=== PATIENT | female | born 1990 | race Caucasian/White ===

== ENCOUNTER 2020-11-12 15:46 | Emergency (ER) | payer OTHER ==
[~2020-11-12] VITALS: Ht 162.6 cm; Wt 68.2 kg
[2020-11-12] MEDS ORDERED: ONDANSETRON 4MG/2ML VIAL IV ONE (17:25)
[2020-11-12 18:16] LABS: BASO # 0.1 10^3/uL (0.0-0.2); BASO % 0.7 % (0.0-1.0); EOS # 0.1 10^3/uL (0.0-0.5); HEMOGLOBIN 13.3 g/dl (12.0-15.5); LYMPH # 4.3 10^3/uL (1.5-5.0); LYMPH % 40.9 % (24.0-44.0); MEAN CORPUSCULAR HEMOGLOBIN 29.7 pg (27.0-33.0); MEAN CORPUSCULAR HGB CONC 34.1 g/dl (32.0-36.5); MEAN CORPUSCULAR VOLUME 87.1 fl (80.0-96.0); MONO # 0.7 10^3/uL (0.0-0.8); MONO % 6.2 % (2.0-8.0); NEUTROPHILS # 5.3 10^3/uL (1.5-8.5); NEUTROPHILS % 50.6 % (36.0-66.0); PLATELET COUNT, AUTOMATED 272 10^3/uL (150-450); RED BLOOD COUNT 4.48 10^6/uL (4.00-5.40); WHITE BLOOD COUNT 10.5 10^3/uL (4.0-10.0)
[2020-11-12 18:23] LABS: ALBUMIN 4.1 GM/DL (3.2-5.2); ALT/SGPT 15 U/L (12-78); BILIRUBIN,DIRECT 0.1 MG/DL (0.0-0.2); BILIRUBIN,TOTAL 0.3 MG/DL (0.2-1.0); BLOOD UREA NITROGEN 13 MG/DL (7-18); CALCIUM LEVEL 8.8 MG/DL (8.5-10.1); CARBON DIOXIDE LEVEL 25 MEQ/L (21-32); CHLORIDE LEVEL 104 MEQ/L (98-107); CREATININE FOR GFR 0.66 MG/DL (0.55-1.30); GLOMERULAR FILTRATION RATE > 60.0 (>60); GLUCOSE, FASTING 123 MG/DL (70-100); LIPASE 94 U/L (73-393); POTASSIUM SERUM 2.9 MEQ/L (3.5-5.1); SODIUM LEVEL 138 MEQ/L (136-145); TOTAL PROTEIN 7.3 GM/DL (6.4-8.2)
[2020-11-12 18:25] LABS: HCG, SERUM QUALITATIVE NEGATIVE (NEGATIVE)
--- NOTE | 2020-11-12 18:58 | REP ---
INDICATION: profuse nausea vomiting. COMPARISON: None. TECHNIQUE: Single upright PA view of the chest, 2 supine AP views of the abdomen, single upright view of the abdomen. FINDINGS: PA chest: The lung breaux are clear. Cardiac size is normal. The diamond, mediastinum, and skeletal structures are unremarkable. There is no free subdiaphragmatic air. Supine and upright abdomen: Bowel gas pattern is normal. There are small calcifications in the pelvis on the right, nonspecific, phleboliths versus ureteral quadrant clinical correlation. The skeletal and soft tissue structures are otherwise unremarkable. IMPRESSION: Negative upright PA chest. Normal bowel gas pattern. Nonspecific pelvic calcifications on the right, phleboliths versus ureteral. <Electronically signed by Waldemar Stewart > 11/12/20 [id number]
[2020-11-12] MEDS ORDERED: POTASSIUM CHLORIDE 10 MEQ SR TABLET PO ONE (19:45)
[2020-11-12] MEDS ORDERED: ONDA4TAB6 PO (19:56)
[2020-11-12 20:11] VITALS: BP 119/73
== END 2020-11-12 20:13 | disposition home or self-care (01) ==
LOC: M ED 15:46
DX: R11.2 Nausea with vomiting, unspecified (principal); E87.6 Hypokalemia; Z88.1 Allergy status to other antibiotic agents
CPT/HCPCS: 74021; 80048; 80076; 83690; 84703; 85025; 96374; 99284; J2405